=== PATIENT | male | born 1985 | race Caucasian/White ===

== ENCOUNTER → 2016-09-26 | Outpatient (REF) ==
[2016-09-26 16:49] LABS: CHLAMYDIA/TRACH by PCR Male Not Detected; Neisseria Gon by PCR Male Not Detected
== END ==
LOC: ZLAB.WCH 14:44
PROVIDERS: Medical Genetics Clinical Genetics (M.D.)
DX: Z01.89 Encounter for other specified special examinations (principal)

== ENCOUNTER → 2016-10-18 | Outpatient (CLI) | payer OTHER | LOC: COL.RAD 09:40 | DX: N50.819 Testicular pain, unspecified (principal) ==

== ENCOUNTER → 2017-07-02 | Outpatient (CLI) | payer OTHER | LOC: MHCPAIN 08:27 | DX: G89.29 Other chronic pain (principal); G57.91 Unspecified mononeuropathy of right lower limb; M79.1 Myalgia; F17.210 Nicotine dependence, cigarettes, uncomplicated | CPT/HCPCS: G0463 ==